=== PATIENT | male | born 1970 | race Caucasian/White ===

== ENCOUNTER 2017-02-21 21:43 | Emergency (ER) | payer OTHER ==
[2017-02-21 21:55] VITALS: O2SAT 98
[2017-02-21] MEDS ORDERED: DILAUDID 2 MG INJECTION IM ONE (22:03)
[2017-02-21] MEDS ORDERED: Phenergan 25 MG INJ IM ONE (22:03)
[2017-02-21] MEDS ORDERED: Norflex 60 MG/2 ML IM ONE (22:04)
--- NOTE | 2017-02-21 22:05 | ERPHSYRPT ---
- History of Present Illness Time Seen by Provider: 02/21/17 21:56 Source: patient Exam Limitations: clinical condition Patient Subjective Stated Complaint: Back Pain Triage Nursing Assessment: Lower back pain x2 days, hx of complaint. Pt states he has tried heat packs without improvement. Pt denies new injury. Pt denies other complaints. Pt is A&O x3, bed in low position, call light in reach. Physician History: PATIENT WITH A HISTORY OF CHRONIC LOW BACK PAIN FOR YEARS, ONSET OF INCREASED SEVERITY X 2 DAYS ASSOCIATED WITH PAIN RADIATING DOWN THE BACK OF BOTH LEGS. DENIES HISTORY OF RECENT TRAUMA, INJURY, LOSS OF BOWEL OR BLADDER FUNCTION. Timing/Duration: day(s) Method of Injury: other (DENIES INJURY) Quality: sharp Back Pain Location: lumbar spine Back Pain Radiation: lower legs Severity of Pain-Max: severe Severity of Pain-Current: severe Modifying Factors: Improves With: movement Associated Symptoms: muscle spasms Previous symptoms: same symptoms as today Allergies/Adverse Reactions: No Known Drug Allergies Allergy (Unverified 12/16/15 02:30) Hx Tetanus, Diphtheria Vaccination/Date Given: No Hx Influenza Vaccination/Date Given: No Hx Pneumococcal Vaccination/Date Given: No Immunizations Up to Date: No - Review of Systems Constitutional: No Fever, No Chills Respiratory: No Cough, No Dyspnea Cardiac: No Chest Pain, No Edema, No Syncope Abdominal/Gastrointestinal: No Abdominal Pain, No Nausea, No Vomiting, No Diarrhea Genitourinary Symptoms: No Dysuria Musculoskeletal: Back Pain Psychological: No Symptoms Endocrine: No Symptoms - Past Medical History Pertinent Past Medical History: No Cardiac History: Other Respiratory History: Asthma - Past Surgical History Past Surgical History: No - Social History Smoking Status: Never smoker Exposure to second hand smoke: No Drug Use: none Patient Lives Alone: No - Nursing Vital Signs Nursing Vital Signs: Initial Vital Signs Temperature 97.6 F 02/21/17 21:50 Pulse Rate 99 H 02/21/17 21:50 Respiratory Rate 16 02/21/17 21:50 Blood Pressure 157/97 02/21/17 21:50 O2 Sat by Pulse Oximetry 98 02/21/17 21:50 Pain Scale Pain Intensity [Back] 3 Pain Intensity 9 - Physical Exam General Appearance: moderate distress Neck Exam: normal inspection, non-tender, supple, full range of motion, No meningismus, No midline tenderness Respiratory Exam: normal breath sounds, lungs clear, No respiratory distress Cardiovascular Exam: regular rate/rhythm, normal heart sounds Back Exam: normal inspection, vertebral tenderness (L-2 TO L-5), decreased range of motion, muscle spasm Extremity Exam: normal inspection, normal range of motion Peripheral Pulses: carotid (R): 2+, carotid (L): 2+, femoral (R): 2+, femoral (L ): 2+, dorsalis-pedis (R): 2+, dorsalis-pedis (L): 2+ Neurologic Exam: alert, oriented x 3 SpO2 Interpretation: normal SpO2: 98 Oxygen Delivery: Room Air Ordered Tests: Medication Summary Discontinued Medications Generic Name Dose Route Start Last Admin Trade Name Freq PRN Reason Stop Dose Admin Hydromorphone HCl 2 mg 02/21/17 22:03 02/21/17 22:12 Dilaudid 2 Mg Injection IM 02/21/17 22:04 2 mg STAT ONE Administration Hydromorphone HCl Confirm 02/21/17 22:08 Hydromorphone 1 Mg/Ml Ampule Administered 02/21/17 22:09 Dose 2 mg .ROUTE .STK-MED ONE Orphenadrine Citrate 60 mg 02/21/17 22:04 02/21/17 22:16 Norflex 60 Mg/2 Ml IM 02/21/17 22:05 60 mg STAT ONE Administration Orphenadrine Citrate Confirm 02/21/17 22:08 Norflex 60 Mg/2 Ml Administered 02/21/17 22:09 Dose 60 mg .ROUTE .STK-MED ONE Promethazine HCl 25 mg 02/21/17 22:03 02/21/17 22:13 Phenergan 25 Mg Inj IM 02/21/17 22:04 25 mg STAT ONE Administration Promethazine HCl Confirm 02/21/17 22:07 Phenergan 25 Mg Inj Administered 02/21/17 22:08 Dose 25 mg .ROUTE .STK-MED ONE - Progress Progress: improved Progress Note: 02/21/17 23:09 ADMINISTERED DILAUDID 2MG/PHENERGAN 25MG IM, NORFLEX 60MG IM WITH MARKED RELIEF IN PAIN Counseled pt/family regarding: diagnosis, need for follow-up - Departure Time of Disposition: 23:15 Departure Disposition: Home (2320) Clinical Impression: EXACERBATION CHRONIC LOW BACK PAIN Condition: Stable Critical Care Time: No Referrals: ALLAN HARLEY MD [Primary Care Provider] - Additional Instructions: CONSULT YOUR PRIMARY CARE PROVIDER FOR EVALUATION AND TREATMENT OF YOUR BACK PAIN. NORCO 10/325 EVERY 4 HOURS NEEDED. NORFLEX 100MG EVERY 12 HOURS FOR MUSCLE SPASMS. Prescriptions: Hydrocodone/APAP 10/325 mg [Aurora 10/325 MG Tablet] 1 tab PO Q4H PRN PRN # 8 tablet MDD 4 PRN Reason: Pain Hydrocodone/APAP 10/325 mg [Aurora 10/325 MG Tablet] 1 tab PO Q4H PRN PRN # 8 tablet MDD 4 PRN Reason: Pain Orphenadrine Citrate 100 mg [Norflex 100 MG Tablet] 100 mg PO BID PRN PRN #10 tab PRN Reason: Muscle Spasms
[2017-02-21] MEDS ORDERED: Phenergan 25 MG INJ ONE (22:07)
[2017-02-21] MEDS ORDERED: Hydromorphone 1 mg/ml Ampule ONE (22:08)
[2017-02-21] MEDS ORDERED: Norflex 60 MG/2 ML ONE (22:08)
[2017-02-21 23:27] VITALS: BP 129/83; PULSE 68
== END 2017-02-21 23:33 | disposition home or self-care (01) ==
LOC: ED 21:43
DX: M54.5 Low back pain (principal); G89.29 Other chronic pain
CPT/HCPCS: 96372; 99284; J1170; J2360; J2550

== ENCOUNTER 2018-10-21 18:34 | Observation (INO) | payer OTHER ==
[2018-10-21] MEDS ORDERED: DILAUDID 2 MG INJECTION IM ONE (19:15)
[2018-10-21] MEDS ORDERED: DECADRON 10MG INJ. IM ONE (19:16)
--- NOTE | 2018-10-21 19:17 | ERPHSYRPT ---
- History of Present Illness Time Seen by Provider: 10/21/18 19:10 Source: patient Exam Limitations: no limitations Patient Subjective Stated Complaint: Pt states "I have been having problems with my back and today, I got home from work and around 5 pm my whole right leg and lower back just started to kill me." Triage Nursing Assessment: Pt presented alert and oriented X3, SKIN pwd. pt presented leaning ro the left in a wheelchair, able to ambulate with assistance , grunting and groaing. Physician History: the patient has been experiencing lower back ache for the past 2 weeks then had a flareup of his pain to his lower back with radiation down his right leg @ 17: 00 on 10/21/2018. Patient experienced similar symptoms approximately 3 years ago with an MRI performed and he had physical therapy performed. Patient denies any recent urinary retention, diarrhea he can't control, fevers, perineal numbness, saddle paresthesias, or bilateral radicular symptoms today. Timing/Duration: week(s) (2) Method of Injury: unknown Quality: radiating, sharp, stabbing Back Pain Location: lumbar spine Back Pain Radiation: lower legs Severity of Pain-Max: severe Severity of Pain-Current: severe Modifying Factors: Improves With: movement (makes it worse) Associated Symptoms: lower back pain, No fever, No chills, No sweating, No urinary incontinence, No loss of bowel control, No constipation, No nausea, No vomiting, No problems urinating, No light-headedness, No dizziness, No numbness in legs/feet, No weakness, No sensory/motor loss, No tingling in legs/feet, No muscle spasms Previous symptoms: same symptoms as today Allergies/Adverse Reactions: No Known Drug Allergies Allergy (Verified 10/21/18 19:06) Hx Tetanus, Diphtheria Vaccination/Date Given: Yes Hx Influenza Vaccination/Date Given: Yes Hx Pneumococcal Vaccination/Date Given: No Immunizations Up to Date: Yes - Review of Systems Constitutional: No Fever, No Chills Eyes: No Symptoms, No Eye Pain Ears, Nose, & Throat: No Symptoms, No Mouth Pain, No Throat Pain Respiratory: No Cough, No Dyspnea Cardiac: No Chest Pain, No Edema, No Syncope Abdominal/Gastrointestinal: No Abdominal Pain, No Nausea, No Vomiting, No Diarrhea, No Hematemesis, No Hematochezia, No Melena Genitourinary Symptoms: No Dysuria, No Frequency, No Hematuria, No Incontinence , No Urinary Retention, No Flank Pain Musculoskeletal: Back Pain, No Neck Pain, No Joint Pain Skin: No Rash, No Skin Lesions Neurological: No Dizziness, No Focal Weakness, No Paralysis, No Parasthesia, No Sensory Changes, No Tremors Psychological: No Symptoms Endocrine: No Symptoms Hematologic/Lymphatic: No Easy Bleeding, No Easy Bruising All Other Systems: Reviewed and Negative - Past Medical History Pertinent Past Medical History: No Neurological History: No Pertinent History Cardiac History: Other Respiratory History: No Pertinent History Endocrine Medical History: No Pertinent History Musculoskeletal History: Other Other Medical History: MITRAL VALVE PROLAPSE; PT. REPORTS PREVIOUS SHORT BOUTS OF LBP - Past Surgical History Past Surgical History: No - Social History Smoking Status: Never smoker Exposure to second hand smoke: No Drug Use: none Patient Lives Alone: No - Nursing Vital Signs Nursing Vital Signs: Initial Vital Signs Temperature 98.1 F 10/21/18 18:59 Pulse Rate 72 10/21/18 18:59 Respiratory Rate 18 10/21/18 18:59 Blood Pressure 146/83 10/21/18 18:59 O2 Sat by Pulse Oximetry 99 10/21/18 18:59 Pain Scale Pain Intensity 8 - Physical Exam General Appearance: no apparent distress, alert Eye Exam: PERRL/EOMI, eyes nml inspection Ears, Nose, Throat Exam: pharynx normal, moist mucous membranes Neck Exam: normal inspection, non-tender, supple, full range of motion, No meningismus, No midline tenderness Respiratory Exam: normal breath sounds, lungs clear, No respiratory distress, No diminished breath sounds, No accessory muscle use Cardiovascular Exam: regular rate/rhythm, normal heart sounds, normal peripheral pulses Gastrointestinal Exam: soft, normal bowel sounds, No tenderness, No mass, No pulsatile mass, No rebound, No organomegaly Back Exam: normal inspection, No CVA tenderness, No vertebral tenderness, No rash, No point tenderness Extremity Exam: normal inspection, normal range of motion, pelvis stable, No calf tenderness, No pedal edema Peripheral Pulses: dorsalis-pedis (R): 2+, dorsalis-pedis (L): 2+ Neurologic Exam: alert, oriented x 3, cooperative, relationship counselor II-XII nml as tested, normal mood/affect, nml station & gait, sensation nml, No motor deficits Skin Exam: normal color, warm, dry, No rash SpO2 Interpretation: normal SpO2: 99 O2 Delivery: Room Air Ordered Tests: Medication Summary Discontinued Medications Generic Name Dose Route Start Last Admin Trade Name January PRN Reason Stop Dose Admin Dexamethasone Sodium Phosphate 10 mg 10/21/18 19:16 10/21/18 19:36 Decadron 10mg Inj. IM 10/21/18 19:17 10 mg STAT ONE Administration Dexamethasone Sodium Phosphate Confirm 10/21/18 19:21 Decadron 10mg Inj. Administered 10/21/18 19:22 Dose 10 mg .ROUTE .STK-MED ONE Hydromorphone HCl 2 mg 10/21/18 19:15 10/21/18 19:33 Dilaudid 2 Mg Injection IM 10/21/18 19:16 2 mg ONCE ONE Administration Hydromorphone HCl Confirm 10/21/18 19:21 Hydromorphone 1 Mg/Ml Ampule Administered 10/21/18 19:22 Dose 2 mg .ROUTE .STK-MED ONE Morphine Sulfate 4 mg 10/21/18 20:46 10/21/18 21:13 Morphine Sulfate 4 Mg Inj IM 10/21/18 20:47 4 mg STAT ONE Administration Morphine Sulfate Confirm 10/21/18 21:12 Morphine Sulfate 4 Mg Inj Administered 10/21/18 21:13 Dose 4 mg .ROUTE .STK-MED ONE - Progress Progress: improved, pain not gone completely, re-examined Progress Note: 10/21/18 20:44 No neurologic deficits on repeat examination, which is a change from initial examination. Patient still has a fair amount pain, but the pain is improving. Patient will be given morphine IM to help with pain control this evening. 10/21/18 22:05 patient's pain has continued to improve the patient has no neurologic deficits or repeat examination. The patient will be discharged home. Counseled pt/family regarding: diagnosis, need for follow-up - Departure Departure Disposition: Home Clinical Impression: Elevated blood pressure reading without diagnosis of hypertension Acute low back pain Qualifiers: Back pain laterality: right Sciatica presence: with sciatica Sciatica laterality: sciatica of right side Qualified Code(s): M54.41 - Lumbago with sciatica, right side Condition: Good Critical Care Time: No Referrals: CRICKET,ALLAN, MD [Primary Care Provider] - 10/22/18 Instructions: Low Back Pain (DC), Sciatica (DC) Additional Instructions: return immediately back to the emergency room if any new focal weakness, bilateral symptoms down both legs, loss of bowel or bladder control, numbness on the area you sit upon, fever, or any other concerning signs or symptoms that was not present in the emergency department for immediate reevaluation. Forms: Work/School Release Form Prescriptions: Methylprednisolone Packet [Medrol Dosepack] 4 mg PO UD #1 packet
[2018-10-21] MEDS ORDERED: DECADRON 10MG INJ. ONE (19:21)
[2018-10-21] MEDS ORDERED: Hydromorphone 1 mg/ml Ampule ONE (19:21)
[2018-10-21] MEDS ORDERED: MORPHINE SULFATE 4 MG INJ IM ONE (20:46)
[2018-10-21] MEDS ORDERED: MORPHINE SULFATE 4 MG INJ ONE (21:12)
[2018-10-21] MEDS ORDERED: Sodium Chloride 0.9% 1000 ML 1,000 ML ONE (23:36)
[2018-10-21] MEDS ORDERED: MORPHINE SULFATE 2 MG INJ IV PRN (23:48)
[2018-10-21] MEDS ORDERED: Sodium Chloride 0.9% 1000 ML 1,000 ML IV STA (23:48)
[2018-10-22 00:44] LABS: BASOPHIL % 0.2 % (0.0-0.4); Basophil (Absolute #) 0.02 (0-0.4); Eosinophil % 0.3 % (0.00-5.0); Eosinophil (Absolute #) 0.03 (0-0.5); Granulocyte Absolute (ANC) 9.63 (1.4-6.9); Granulocytes % 93.9 % (36.0-66.0); Hematocrit 46.3 % (42-50); Hemoglobin 16.1 gm/dl (12.5-18.0); Lymphocyte (Absolute #) 0.53 (1.0-4.6); Lymphocytes % 5.2 % (24.0-44.0); Mean Cell Volume 84.5 fl (78-100); Mean Corpuscular Hemoglobin 29.4 pg (26-32); Mean Corpuscular Hgb Concent. 34.8 g/dl (32-36); Mean Platelet Volume 9.7 fl (6-9.5); Monocyte (Absolute #) 0.04 (0.0-1.3); Monocytes % 0.4 % (0.0-12.0); Platelet Count 233 K/mm3 (150-450); Red Blood Count 5.48 M/mm3 (4.1-5.6); Red Cell Distribution Width 12.7 % (11.5-14.0); White Blood Count 10.3 K/mm3 (4.0-10.5)
[2018-10-22 01:01] LABS: BLOOD UREA NITROGEN 11 mg/dL (9-20); CHLORIDE 106 mmol/L (98-107); CK-Creatinine Phosphokinase 74 U/L (55-170); Calcium 9.2 mg/dL (8.4-10.2); Carbon Dioxide 22 mmol/L (22-30); Creatinine 1 0.73 mg/dL (0.66-1.25); Glucose 203 mg/dL (74-106); Potassium 4.2 mmol/L (3.5-5.1); SODIUM 138 mmol/L (137-145)
[2018-10-22 02:51] LABS: Slide Review 1 YES
[2018-10-22] MEDS: MORPHINE SULFATE 4 MG INJ IV PRN ×3 (07:31→20:58)
[2018-10-22] MEDS ORDERED: MOTRIN 200 MG PO PRN (08:58)
[2018-10-22] MEDS ORDERED: Sodium Chloride 0.9% 10 ML FLUSH Syringe IV PRN (09:00)
--- NOTE | 2018-10-22 11:08 | PCM.HP ---
History of Present Illness - Chief Complaint Chief Complaint: severe back pain for 1 day History of Present Illness: is a 48 year old male. patient has been experiencing lower back ache for the past 2 weeks then had a flareup of his pain to his lower back with radiation down his right leg @ 17:00 on 10/21/2018. Patient experienced similar symptoms approximately 3 years ago with an MRI performed and he had physical therapy performed. Patient denies any recent urinary retention, diarrhea he can 't control, fevers, perineal numbness, saddle paresthesias, or bilateral radicular symptoms today. Timing/Duration: week(s) (2) Method of Injury: unknown Quality: radiating, sharp, stabbing Back Pain Location: lumbar spine Back Pain Radiation: lower legs Severity of Pain-Max: severe Severity of Pain-Current: severe Modifying Factors: Improves With: movement (makes it worse) Associated Symptoms: lower back pain, No fever, No chills, No sweating, No urinary incontinence, No loss of bowel control, No constipation, No nausea, No vomiting, No problems urinating, No light-headedness, No dizziness, No numbness in legs/feet, No weakness, No sensory/motor loss, No tingling in legs/feet, No muscle spasm - Review of Systems Constitutional: No Fever, No Chills Eyes: No Symptoms Ears, Nose, & Throat: No Symptoms Respiratory: No Cough, No Short Of Breath Cardiac: No Chest Pain, No Edema, No Syncope Abdominal/Gastrointestinal: No Abdominal Pain, No Nausea, No Vomiting, No Diarrhea Genitourinary Symptoms: No Dysuria Musculoskeletal: Back Pain, No Neck Pain Skin: No Rash Neurological: No Dizziness, No Focal Weakness, No Sensory Changes Psychological: No Symptoms Endocrine: No Symptoms Hematologic/Lymphatic: No Symptoms Immunological/Allergic: No Symptoms Medications & Allergies Home Medications: Home Medication List Ibuprofen 200 mg [Motrin 200 mg] 200 mg PO Q6H PRN PRN 10/22/18 [History Confirmed 10/22/18] Allergies/Adverse Reactions: Allergies Allergy/AdvReac Type Severity Reaction Status Date / Time No Known Drug Allergies Allergy Verified 10/21/18 19:06 - Past Medical History Past Medical History: No Neurological History: No Pertinent History Cardiac History: Other Respiratory History: Asthma Endocrine Medical History: No Pertinent History Musculoskelatal History: Other Comment: MITRAL VALVE PROLAPSE - Past Surgical History Past Surgical History: No - Social History Smoking Status: Never smoker Exposure to second hand smoke: No Alcohol: Occasionally Drug Use: none - Physical Exam Vital Signs: Vital Signs - 24 hr Temp Pulse Resp BP Pulse Ox 10/22/18 07:28 98.1 F 96 H 16 133/82 96 10/22/18 04:20 97.7 F 106 H 14 141/70 96 10/22/18 00:39 98.5 F 73 20 162/87 97 10/21/18 23:48 97 10/21/18 22:30 71 17 125/80 95 10/21/18 22:11 99 10/21/18 21:40 68 17 134/88 96 10/21/18 20:50 70 16 125/84 97 10/21/18 20:00 65 18 131/77 97 10/21/18 18:59 98.1 F 72 18 146/83 99 General Appearance: no apparent distress, alert Neurologic Exam: alert, oriented x 3, cooperative, normal mood/affect, nml cerebellar function, nml station & gait, sensation nml, No motor deficits Eye Exam: PERRL/EOMI, eyes nml inspection Ears, Nose, Throat Exam: normal ENT inspection, TMs normal, pharynx normal, moist mucous membranes Neck Exam: normal inspection, non-tender, supple, full range of motion Respiratory Exam: normal breath sounds, lungs clear, No respiratory distress Cardiovascular Exam: regular rate/rhythm, normal heart sounds, normal peripheral pulses Gastrointestinal/Abdomen Exam: soft, normal bowel sounds, No tenderness, No mass Back Exam: normal inspection, normal range of motion, No CVA tenderness, No vertebral tenderness Extremity Exam: normal inspection, normal range of motion, pelvis stable Skin Exam: normal color, warm, dry, No rash Lymphatic Exam: No adenopathy Results - Labs Lab/Micro Results: Lab Results-Last 24 Hours 10/21/18 10/21/18 Range/Units 00:30 00:30 WBC 10.3 (4.0-10.5) K/mm3 RBC 5.48 (4.1-5.6) M/mm3 Hgb 16.1 (12.5-18.0) gm/dl Hct 46.3 (42-50) % MCV 84.5 (78-100) fl MCH 29.4 (26-32) pg MCHC 34.8 (32-36) g/dl RDW 12.7 (11.5-14.0) % Plt Count 233 (150-450) K/mm3 MPV 9.7 H (6-9.5) fl Gran % 93.9 H (36.0-66.0) % Eos # (Auto) 0.03 (0-0.5) Absolute Lymphs (auto) 0.53 L (1.0-4.6) Absolute Monos (auto) 0.04 (0.0-1.3) Lymphocytes % 5.2 L (24.0-44.0) % Monocytes % 0.4 (0.0-12.0) % Eosinophils % 0.3 (0.00-5.0) % Basophils % 0.2 (0.0-0.4) % Absolute Granulocytes 9.63 H (1.4-6.9) Basophils # 0.02 (0-0.4) Sodium 138 (137-145) mmol/L Potassium 4.2 (3.5-5.1) mmol/L Chloride 106 (98-107) mmol/L Carbon Dioxide 22 (22-30) mmol/L Anion Gap 15.0 (5-15) MEQ/L BUN 11 (9-20) mg/dL Creatinine 0.73 (0.66-1.25) mg/dL Estimated GFR > 60.0 ML/MIN Glucose 203 H (74-106) mg/dL Calcium 9.2 (8.4-10.2) mg/dL Creatine Kinase 74 (55-170) U/L Slides for Path Review YES Assessment/Plan (1) Acute low back pain Current Visit: Yes Status: Acute Qualifiers: Back pain laterality: right Sciatica presence: with sciatica Sciatica laterality: sciatica of right side Qualified Code(s): M54.41 - Lumbago with sciatica, right side Assessment & Plan: Last Vital Signs Temp 98.1 F 10/22/18 07:28 Pulse 96 H 10/22/18 07:28 Resp 16 10/22/18 07:28 BP 133/82 10/22/18 07:28 Pulse Ox 96 10/22/18 07:28 Allergies No Known Drug Allergies Allergy (Verified 10/21/18 19:06) Active Medications Ibuprofen (Motrin 200 Mg) 200 mg PO Q6H PRN PRN PRN Reason: PAIN Stop: 11/21/18 08:57 Morphine Sulfate (Morphine Sulfate 4 Mg Inj) 4 mg IV Q2H PRN PRN Stop: 10/27/18 06:59 Last Admin: 10/22/18 07:31 Dose: 4 mg Sodium Chloride (Sodium Chloride 0.9% 10 Ml Flush Syringe) 10 ml IV Q8HT JULIA Stop: 11/21/18 13:59 Sodium Chloride (Sodium Chloride 0.9% 10 Ml Flush Syringe) 10 ml IV PRN PRN Stop: 11/21/18 08:59 Intake & Output 10/21/18 10/22/18 11:59 11:59 Intake Total 2030 Balance 2030 Weight 73.8 kg Orders 10/22/18 08:30 PT Eval & Treat (MD Order) ROUTINE 10/22/18 08:58 Ibuprofen 200 mg [Motrin 200 mg] 200 mg PO Q6H PRN PRN Lab Tests 10/21/18 10/21/18 00:30 00:30 WBC 10.3 RBC 5.48 Hgb 16.1 Hct 46.3 MCV 84.5 MCH 29.4 MCHC 34.8 RDW 12.7 Plt Count 233 MPV 9.7 H Gran % 93.9 H Eos # (Auto) 0.03 Absolute Lymphs (auto) 0.53 L Absolute Monos (auto) 0.04 Lymphocytes % 5.2 L Monocytes % 0.4 Eosinophils % 0.3 Basophils % 0.2 Absolute Granulocytes 9.63 H Basophils # 0.02 Sodium 138 Potassium 4.2 Chloride 106 Carbon Dioxide 22 Anion Gap 15.0 BUN 11 Creatinine 0.73 Estimated GFR > 60.0 Glucose 203 H Calcium 9.2 Creatine Kinase 74 Slides for Path Review YES Code(s): M54.5 - LOW BACK PAIN (2) Intractable back pain Current Visit: Yes Status: Acute Code(s): M54.9 - DORSALGIA, UNSPECIFIED
[2018-10-22] MEDS ORDERED: TORAdol 30 mg Injection IM SCH (11:45)
[2018-10-22] MEDS: Sodium Chloride 0.9% 10 ML FLUSH Syringe IV SCH ×2 (14:16→20:17)
--- NOTE | 2018-10-22 14:58 | XRAY ---
Indication: Intractable low back pain with right leg radiculopathy. Sagittal and axial MRI lumbar spine performed without contrast using T1 and T2 weighted sequences. Comparison: None No prior lumbar exams for counting purposes. 5 lumbar segments will be assumed. Sagittal MRI images demonstrates normal lumbar alignment. L4-S1 degenerative disc desiccation signal with minimal disc space narrowing. Minimal L5-S1 opposing endplate degenerative discogenic signal changes, Modic type II. Tiny L4 and L5 vertebral hemangiomas. No acute fracture, sublocation, or abnormal bone marrow signal. Conus medullaris terminates at the thoracolumbar junction. Incidental 1.5 cm right S3 perineural cyst. Sagittal images through the T12-L3 levels are unremarkable. Axial images at the L3-L4 level demonstrates very minimal annular disc bulge minimally effacing the thecal sac. No disc herniation, spinal canal, or foraminal stenosis. Facets are symmetric. At the L4-L5 level, there is large right paracentral disc herniation. Disc material extends posteriorly occupying the right epidural space and also extends superiorly slightly effacing the thecal sac. Herniated disc measures 1.2 x 1.1 x 3.1 cm in greatest AP, transverse, and CC projections. Facets are symmetric. At the L5-S1 level, there is minimal annular disc bulge minimally effacing the thecal sac and producing mild bilateral foraminal narrowing. No disc herniation or spinal canal stenosis. Facets are symmetric. Impression: 1. Large L4-L5 right paracentral disc herniation as detailed. 2. Minimal L3-L4 and L5-S1 degenerative disc disease. 3. Incidental 1.5 cm right S3 perineural cyst and tiny L4/L5 vertebral hemangiomas.
[2018-10-22] MEDS: TORAdol 30 mg Injection IV SCH (19:47)
[2018-10-23] MEDS: TORAdol 30 mg Injection IV SCH ×3 (03:43→20:16)
[2018-10-23] MEDS: Sodium Chloride 0.9% 10 ML FLUSH Syringe IV SCH (03:46)
[2018-10-23] MEDS: MORPHINE SULFATE 4 MG INJ IV PRN ×5 (08:43→21:41)
--- NOTE | 2018-10-23 12:38 | PCM.NOTE ---
Date and Time: 10/23/18 1236 Subjective Assessment: unable to walk on right side at all, unable to bear weight - Review of Systems Constitutional: No Fever, No Chills Eyes: No Symptoms Ears, Nose, & Throat: No Symptoms Respiratory: No Cough, No Short Of Breath Cardiac: No Chest Pain, No Edema, No Syncope Abdominal/Gastrointestinal: No Abdominal Pain, No Nausea, No Vomiting, No Diarrhea Genitourinary Symptoms: No Dysuria Musculoskeletal: No Back Pain, No Neck Pain Skin: No Rash Neurological: No Dizziness, No Focal Weakness, No Sensory Changes Psychological: No Symptoms Endocrine: No Symptoms Hematologic/Lymphatic: No Symptoms Immunological/Allergic: No Symptoms Objective Exam General Appearance: no apparent distress, alert Neurologic Exam: alert, oriented x 3, cooperative, motor deficits, sensory deficit Skin Exam: normal color, warm, dry Eye Exam: PERRL, EOMI, eyes nml inspection Ears, Nose, Throat Exam: normal ENT inspection, pharynx normal, moist mucous membranes Neck Exam: normal inspection, non-tender, supple, full range of motion Respiratory Exam: normal breath sounds, lungs clear, No respiratory distress Cardiovascular Exam: regular rate/rhythm, normal heart sounds Gastrointestinal/Abdomen Exam: soft, No tenderness, No mass Extremity Exam: normal inspection, normal range of motion Back Exam: normal inspection, normal range of motion, No CVA tenderness, No vertebral tenderness Male Genitalia Exam: deferred Rectal Exam: deferred OBJECTIVE DATA Vital Signs: Vital Signs - 24 hr Temp Pulse Resp BP Pulse Ox 10/23/18 07:40 97.9 F 78 16 113/58 98 10/23/18 04:02 98.1 F 68 16 122/65 97 10/22/18 23:48 97 10/22/18 23:44 98.2 F 68 20 126/58 97 10/22/18 19:58 97.8 F 82 18 127/66 97 10/22/18 16:00 98 F 82 18 130/60 96 Pain Assessment - Last Documented Pain Intensity 7 Pain Scale Used 0-10 Pain Scale Intake and Output: Intake & Output 10/21/18 10/22/18 10/23/18 10/24/18 11:59 11:59 11:59 11:59 Intake Total 2030 1500 Balance 2030 1500 Weight 73.8 kg Radiology Exams: Radiology Procedures Category Date Time Status MRI L-SPINE WITHOUT CONTRAST [MRI] Routine Exams 10/22/18 13:03 Completed Assessment/Plan (1) Acute low back pain Current Visit: Yes Status: Acute Qualifiers: Back pain laterality: right Sciatica presence: with sciatica Sciatica laterality: sciatica of right side Qualified Code(s): M54.41 - Lumbago with sciatica, right side Code(s): M54.5 - LOW BACK PAIN (2) Intractable back pain Current Visit: Yes Status: Acute Code(s): M54.9 - DORSALGIA, UNSPECIFIED
[2018-10-24] MEDS: TORAdol 30 mg Injection IV SCH ×3 (04:07→20:32)
[2018-10-24] MEDS: MORPHINE SULFATE 4 MG INJ IV PRN ×4 (07:46→22:01)
--- NOTE | 2018-10-24 09:17 | PCM.NOTE ---
Date and Time: 10/24/18910 Subjective Assessment: Patient seen and examined this am. Patient reports that he is still having significant back pain and requiring morphine every 2-4 hours. He reports that he has had numbness and pain that radiate down his right leg. He denies any issues with voiding and stooling. He reports that he does not feel he needs a stool softner at this time. He states he got up with PT x3 yesterday and tolerated that well. Patient was concerned about appt with Dr Galindo on . No other reported concerns at this time. - Review of Systems Constitutional: Other (Patient reports back and R lower leg pain. ) Eyes: No Double Vision Respiratory: No Short Of Breath Cardiac: No Chest Pain, No Edema Abdominal/Gastrointestinal: No Abdominal Pain, No Nausea, No Vomiting, No Diarrhea, No Constipation Genitourinary Symptoms: No Urinary Retention Musculoskeletal: Back Pain (Tender with palpation L3-L4 area. Decreased sensation R lower extremity 2/5 strength R lower extremity) Skin: No Rash Neurological: Gait Changes, Parasthesia, Sensory Changes, No Headache Hematologic/Lymphatic: No Anemia, No Blood Clots, No Easy Bleeding Objective Exam General Appearance: mild distress Neurologic Exam: alert, oriented x 3, cooperative, normal mood/affect, motor deficits (2/5 strength R lower extremity. Decreased sensation on R lower extremity) Skin Exam: warm, dry Eye Exam: eyes nml inspection Respiratory Exam: normal breath sounds, lungs clear Cardiovascular Exam: regular rate/rhythm Gastrointestinal/Abdomen Exam: soft, normal bowel sounds, No tenderness Extremity Exam: parasthesia Back Exam: point tenderness Male Genitalia Exam: deferred Rectal Exam: deferred OBJECTIVE DATA Vital Signs: Vital Signs - 24 hr Temp Pulse Resp BP Pulse Ox 10/24/18 08:00 97.5 F 73 20 122/68 97 10/24/18 04:00 97.5 F 55 L 18 111/61 10/24/18 00:00 98.2 F 60 18 124/65 96 10/23/18 20:00 81 F 66 19 151/83 96 10/23/18 16:00 98.4 F 66 20 132/70 95 10/23/18 12:00 99 F 60 16 150/84 94 L Pain Assessment - Last Documented Pain Intensity 8 Pain Scale Used 0-10 Pain Scale Intake and Output: Intake & Output 10/21/18 10/22/18 10/23/18 10/24/18 11:59 11:59 11:59 11:59 Intake Total 2030 1500 1200 Balance 2030 1500 1200 Weight 73.8 kg Radiology Exams: Radiology Procedures Category Date Time Status MRI L-SPINE WITHOUT CONTRAST [MRI] Routine Exams 10/22/18 13:03 Completed Multi-Disciplinary Progress Notes: Multi-Disciplinary Progress Notes 10/23/18 16:27 Physical Therapy Note by Pamela Tobin PT. AMBUALTED 50' W/ ROLLER WALKER AND CGA. WAS ABLE TO WB R LE W/ GAIT BUT PICKED FOOT UP TO BE NWB WHEN CHANGING DIRECTION TO AVOID P. ATTEMPTED STANDING SHIFTS IN DOORWAY TO R TO DECREASE RADICULAR PN WHICH PT PERFORMED BUT DID NOT RELIEVE SX. PAMELA TOBIN PT Initialized on 10/23/18 16:27 - END OF NOTE 10/23/18 15:47 Physical Therapy Note by Pamela Tobin PT. STILL C/O R LBP AND PN INTO R LE PER L4-5 PATTERN. PT. REPORTS PN AT 7-9/ 10 W/ MINIMAL RELIEF W/ MEDS OR RX. PN STILL INCREASES W/ WB AND HAS TO USE ROLLER WALKER FOR BALANCE EVEN TO AMBULATE TO BATHROOM. CP, MENS X 30 MINS TO R L-SPINE IN L SIDELYING TO DECREASE PN/INFLAMMATION. DID TOLERATE PRONE LYING FOR ~ 3-4 MINS W/ MILD RELIEF; RECEIVED L PELVIS SHIFTS AND L-SPIN EPAS TO DECREASE NERVE ROOT PRESSURE W/ MINIMAL RELIEF. PT. IS TO HAVE NEUROSURG. CONSULT W/ DR. GALINDO ON 10/27/18 AND PLAN IS FOR HIM TO STAY FOR PN MG'T. WILL CONT. P.T. TOLERATED. PAMELA TOBIN PT Initialized on 10/23/18 15:47 - END OF NOTE 10/23/18 12:51 Case Management Note by Jeana Zendejas CALL TO DR. GALINDO OFFICE - APPOINTMENT ON AT 2:30, PT WILL NEED TO ARRIVE AT 2:[address] HARLEY AWARE, DISCUSSED WITH PT, AND PT WILL LIKELY STAY IN HOSPITAL UNTIL THAT APPOINTMENT FOR PAIN CONTROL. Initialized on 10/23/18 12:51 - END OF NOTE 10/23/18 12:30 (created 10/23/18 12:49) Case Management Note by Jeana Zendejas DR. ROUNDED AND EVALUATED, PT IS UNABLE TO BEAR WEIGHT ON RIGHT LEG, C/ O SEVERE PAIN. DR. HARLEY DISCUSSED MRI FINDINGS AND RELATED PAIN. WILL CONTACT DR. KIANNA GALINDO, NEUROSURGEON FOR APPOINTMENT. PT IS AGREEABLE FOR THIS PLAN. Initialized on 10/23/18 12:49 - END OF NOTE Assessment/Plan (1) Intractable back pain Current Visit: Yes Status: Acute Assessment & Plan: Patient reports improvement of back pain from initial admission however he reports that he is requiring morphine every 2-4 hours to control his back pain. Patient reports he was able to get up with PT x3 yesterday and tolerated it well. He reports decreased sensation and has decreased strength in R lower extremity. Plan is to continue pain management. Patient has appt to follow up with Dr Galindo neurosurgeon on to discuss tx options. Code(s): M54.9 - DORSALGIA, UNSPECIFIED (2) Acute low back pain Current Visit: Yes Status: Acute Qualifiers: Back pain laterality: right Sciatica presence: with sciatica Sciatica laterality: sciatica of right side Qualified Code(s): M54.41 - Lumbago with sciatica, right side Assessment & Plan: Same plan as in intractable back pain Code(s): M54.5 - LOW BACK PAIN (3) Sciatica Current Visit: Yes Status: Acute Assessment & Plan: Patient will likely need surgery for tx of sciatica. Will have patient follow up with Dr Galindo neurosurgeon. Code(s): M54.30 - SCIATICA, UNSPECIFIED SIDE
[2018-10-24] MEDS ORDERED: MORPHINE SULFATE 2 MG INJ IV ONE (11:07)
[2018-10-24] MEDS: Sodium Chloride 0.9% 10 ML FLUSH Syringe IV SCH ×3 (16:51→22:01)
[2018-10-25] MEDS: MORPHINE SULFATE 4 MG INJ IV PRN ×7 (03:14→22:30)
[2018-10-25] MEDS: TORAdol 30 mg Injection IV SCH ×3 (04:51→20:21)
--- NOTE | 2018-10-25 11:11 | PCM.NOTE ---
Date and Time: 10/25/18 1106 Subjective Assessment: 48 yr old male seen and examined this am. Patient was sleeping upon entering the room. Patient reports his pain is 8/10 right now. Patient reports that his pain was worse yesterday when he was up out of bed and felt like he was going to pass out. Patient is still requiring pain meds every 2-4 hours. Patient reports that he is eating well. He denies any issues with voiding. He has not had a BM. Discussed with patient that the morphine can be constipating but he denies any sensation of needing to have BM. - Review of Systems Constitutional: Weakness Eyes: No Vision Changes, No Double Vision Respiratory: No Cough, No Short Of Breath Cardiac: No Chest Pain, No Edema Abdominal/Gastrointestinal: No Abdominal Pain, No Nausea, No Vomiting, No Diarrhea, No Constipation Genitourinary Symptoms: No No Symptoms Musculoskeletal: Back Pain, Other (Right leg numbness) Skin: No Symptoms Neurological: Parasthesia, No Headache Objective Exam General Appearance: other (Patient was asleep upon entering the room and NAD during exam) Neurologic Exam: alert, oriented x 3, cooperative Skin Exam: normal color, warm, dry Eye Exam: eyes nml inspection Neck Exam: normal inspection Respiratory Exam: normal breath sounds, lungs clear Cardiovascular Exam: regular rate/rhythm, normal heart sounds Gastrointestinal/Abdomen Exam: soft, normal bowel sounds, No tenderness, No distention Extremity Exam: other (Patient had normal ROM with lower extremities however when performing straight leg raises against resistance patient demonstrated 2/5 on R side. Patient was able to bend and move R leg without difficulty. Decreased sensation R lower extremity.) Back Exam: point tenderness (Noted on exam yesterday) OBJECTIVE DATA Vital Signs: Vital Signs - 24 hr Temp Pulse Resp BP Pulse Ox 10/25/18 07:54 98.5 F 59 L 18 120/73 98 10/25/18 04:00 97.5 F 64 18 131/75 97 10/25/18 00:00 97.6 F 61 18 135/73 97 10/24/18 20:00 97.4 F 70 20 134/66 96 10/24/18 16:00 97.7 F 66 20 117/61 99 10/24/18 12:00 97.5 F 53 L 24 126/77 99 Pain Assessment - Last Documented Pain Intensity 8 Pain Scale Used 0-10 Pain Scale Intake and Output: Intake & Output 10/22/18 10/23/18 10/24/18 10/25/18 11:59 11:59 11:59 11:59 Intake Total 2030 1500 1680 1780 Output Total 275 550 Balance 2030 1500 1405 1230 Weight 73.8 kg Assessment/Plan (1) Intractable back pain Current Visit: Yes Status: Acute Assessment & Plan: Patient reports improvement of back pain from initial admission however he reports that he is requiring morphine every 2-4 hours to control his back pain. Patient reports 8/10 pain. He reports decreased sensation and has decreased strength in R lower extremity. Plan is to continue pain management. Patient has appt to follow up with Dr Galindo neurosurgeon on [facility] to discuss tx options. Code(s): M54.9 - DORSALGIA, UNSPECIFIED (2) Acute low back pain Current Visit: Yes Status: Acute Qualifiers: Back pain laterality: right Sciatica presence: with sciatica Sciatica laterality: sciatica of right side Qualified Code(s): M54.41 - Lumbago with sciatica, right side Code(s): M54.5 - LOW BACK PAIN (3) Sciatica Current Visit: Yes Status: Acute Code(s): M54.30 - SCIATICA, UNSPECIFIED SIDE
[2018-10-25] MEDS: Sodium Chloride 0.9% 10 ML FLUSH Syringe IV SCH ×3 (19:18→20:28)
[2018-10-26] MEDS: MORPHINE SULFATE 4 MG INJ IV PRN ×2 (00:50→07:11)
[2018-10-26] MEDS: TORAdol 30 mg Injection IV SCH (03:15)
[2018-10-26] MEDS: Sodium Chloride 0.9% 10 ML FLUSH Syringe IV SCH (05:25)
[2018-10-26 07:31] VITALS: O2SAT 97
[2018-10-26] MEDS ORDERED: Naprosyn 500 MG PO SCH (10:00)
[2018-10-26 11:30] VITALS: BP 98/53; PULSE 61
--- NOTE | 2018-10-27 12:30 | PCM.DS ---
Discharge Summary Date of Admission: 10/21/18 23:22 Admitting Physician: ALLAN HARLEY Primary Care Provider: ALLAN HARLEY Allergies Allergies No Known Drug Allergies Allergy (Verified 10/21/18 19:06) Hospital Summary - Hospital Course Hospital Course: Chief Complaint Diagnosis severe back pain for 1 day Allergies Allergy/AdvReac Type Severity Reaction Status Date / Time No Known Drug Allergies Allergy Verified 10/21/18 19:06 Home Medications Medication Instructions Recorded Confirmed Last Taken Type Ibuprofen 200 mg [Motrin 200 200 mg PO Q6H PRN PRN 10/22/18 10/22/18 Unknown History mg] Naproxen 500 mg [Naprosyn 500 500 mg PO BIDPRN PRN #10 tablet 10/26/18 Unknown Rx MG] Current Medications Discontinued Medications Generic Name Dose Route Start Last Admin Trade Name Freq PRN Reason Stop Dose Admin Dexamethasone Sodium Phosphate 10 mg 10/21/18 19:16 10/21/18 19:36 Decadron 10mg Inj. IM 10/21/18 19:17 10 mg STAT ONE Administration Dexamethasone Sodium Phosphate Confirm 10/21/18 19:21 Decadron 10mg Inj. Administered 10/21/18 19:22 Dose 10 mg .ROUTE .STK-MED ONE Hydromorphone HCl 2 mg 10/21/18 19:15 10/21/18 19:33 Dilaudid 2 Mg Injection IM 10/21/18 19:16 2 mg ONCE ONE Administration Hydromorphone HCl Confirm 10/21/18 19:21 Hydromorphone 1 Mg/Ml Ampule Administered 10/21/18 19:22 Dose 2 mg .ROUTE .STK-MED ONE Sodium Chloride Confirm 10/21/18 23:36 Sodium Chloride 0.9% 1000 Ml Administered 10/21/18 23:37 Dose 1,000 mls @ ud .ROUTE .STK-MED ONE Sodium Chloride 1,000 mls @ 999 mls/hr 10/21/18 23:48 10/22/18 00:30 Sodium Chloride 0.9% 1000 Ml IV 10/22/18 00:48 999 mls/hr .Q1H1M STA Administration Ibuprofen 200 mg 10/22/18 08:58 Motrin 200 Mg PO 11/21/18 08:57 Q6H PRN PRN PAIN Ketorolac Tromethamine 60 mg 10/22/18 11:45 10/22/18 11:57 Toradol 30 Mg Injection IM 10/27/18 11:44 60 mg Q8H JULIA Administration Ketorolac Tromethamine 30 mg 10/22/18 19:45 10/26/18 03:15 Toradol 30 Mg Injection IV 10/27/18 19:44 Not Given Q8H JULIA Morphine Sulfate 4 mg 10/21/18 20:46 10/21/18 21:13 Morphine Sulfate 4 Mg Inj IM 10/21/18 20:47 4 mg STAT ONE Administration Morphine Sulfate Confirm 10/21/18 21:12 Morphine Sulfate 4 Mg Inj Administered 10/21/18 21:13 Dose 4 mg .ROUTE .STK-MED ONE Morphine Sulfate 4 mg 10/21/18 23:48 10/22/18 00:30 Morphine Sulfate 2 Mg Inj IV 10/26/18 23:47 4 mg Q2H PRN PRN Administration PAIN Morphine Sulfate 4 mg 10/22/18 07:00 10/26/18 07:11 Morphine Sulfate 4 Mg Inj IV 10/27/18 06:59 4 mg Q2H PRN PRN Administration Morphine Sulfate 1 mg 10/24/18 11:07 10/24/18 11:15 Morphine Sulfate 2 Mg Inj IV 10/24/18 11:08 1 mg STAT ONE Administration Naproxen 500 mg 10/26/18 10:00 10/26/18 09:41 Naprosyn 500 Mg PO 11/25/18 09:59 500 mg BID JULIA Administration Sodium Chloride 10 ml 10/22/18 14:00 10/26/18 05:25 Sodium Chloride 0.9% 10 Ml Flush Syringe IV 11/21/18 13:59 10 ml Q8HT JULIA Administration Sodium Chloride 10 ml 10/22/18 09:00 10/22/18 20:59 Sodium Chloride 0.9% 10 Ml Flush Syringe IV 11/21/18 08:59 10 ml PRN PRN Administration Intake & Output (Last 24 hours) 10/25/18 10/26/18 10/27/18 10/28/18 11:59 11:59 11:59 11:59 Intake Total 1780 2120 240 Output Total 550 Balance 1230 2120 240 Patient Care Notes (Last 24 hours) 10/26/18 15:48 Physical Therapy Note by Pamela Tobin PT. REPORTS R LBP AND R LE PN/PARASTHESIAS AT ~08/26. PLAN IS TO D/C HOME W/ NAPROXEN. PT. REPORTS INCREASED PN W/ WB BUT IS ABLE TO AMBULATE 100' W/ ROLLER WALKER AND SBA. PT. REPORTS HE CAN BORROW A WALKER WHEN HE GETS HOME, BUT ADVISED HIM TO LET US KNOW I WOULD PROVIDE P.T. DOCUMENTATION TO ASSIST W/ INSURANCE COVERAGE. PT. PERFORMED PRONE LYING AND PRONE PROP FOR ~ 3 MINS W/ NO INCREASE IN PN. PT. REPORTED INCREASED R LE PN W/ ATTTEMPT TO SHIFT PELVIS TO LEFT IN PRONE. PT. NOT ABLE TO TOLERATE HAMSTRING/SCIATIC STRETCH IN [place]. PT. REPORTED SOME DECREASED PN W/ R LEG DISTRACTION IN [place]. CP APPLIED TO DECREASE PN/INFLAMMATION. PT. TO SEE DR. GALINDO TOMORROW 10/27 FOR NEUROSURG. CONSULT. NO OP P.T. ORDERED AT THIS TIME. PAMELA TOBIN PT Initialized on 10/26/18 15:48 - END OF NOTE 10/26/18 13:52 Nursing Note by Vandana Duval patient taken home by his father, given discharge instructions on how to manage pain at home Initialized on 10/26/18 13:52 - END OF NOTE - Vitals & Intake/Output Vital Signs: Vital Signs Temperature 98.6 F 10/26/18 11:29 Pulse Rate 61 10/26/18 11:29 Respiratory Rate 18 10/26/18 11:29 Blood Pressure 98/53 10/26/18 11:29 O2 Sat by Pulse Oximetry 97 10/26/18 11:29 Intake & Output: Intake & Output 10/25/18 10/26/18 10/27/18 10/28/18 11:59 11:59 11:59 11:59 Intake Total 1780 2120 240 Output Total 550 Balance 1230 2120 240 - Lab Result Diagrams: 10/21/18 00:30 10/21/18 00:30 - Procedures and Test Procedures and Tests throughout Hospitalization: Therapy Orders & Screens 10/22/18 08:30 PT Eval & Treat ( Order) ROUTINE Reason for Eval:: UNABLE TO WALK PER INCREASED PAIN R/T INTRACTABLE BACK PAIN /SCIATICA Diagnosis: Intractable Low Back Pain Discharge Exam General Appearance: no apparent distress, alert Neurologic Exam: alert, oriented x 3, cooperative, normal mood/affect, nml cerebellar function, sensation nml, No motor deficits Eye Exam: PERRL, EOMI, eyes nml inspection Ears, Nose, Throat Exam: normal ENT inspection, pharynx normal, moist mucous membranes Neck Exam: normal inspection, non-tender, supple, full range of motion Respiratory Exam: normal breath sounds, lungs clear, No respiratory distress Cardiovascular Exam: regular rate/rhythm, normal heart sounds Gastrointestinal/Abdomen Exam: soft, No tenderness, No mass Male Genitalia Exam: deferred Rectal Exam: deferred Back Exam: normal inspection, normal range of motion, No CVA tenderness, No vertebral tenderness Extremity Exam: normal inspection, normal range of motion Skin Exam: normal color, warm, dry Final Diagnosis/Problem List - Final Discharge Diagnosis/Problem (1) Paracentral disc prolapse Status: Acute Assessment & Plan: follow up with Dr Galindo tomorrow Chief Complaint Diagnosis severe back pain for 1 day Allergies Allergy/AdvReac Type Severity Reaction Status Date / Time No Known Drug Allergies Allergy Verified 10/21/18 19:06 Home Medications Medication Instructions Recorded Confirmed Last Taken Type Ibuprofen 200 mg [Motrin 200 200 mg PO Q6H PRN PRN 10/22/18 10/22/18 Unknown History mg] Naproxen 500 mg [Naprosyn 500 500 mg PO BIDPRN PRN #10 tablet 10/26/18 Unknown Rx MG] Current Medications Discontinued Medications Generic Name Dose Route Start Last Admin Trade Name Freq PRN Reason Stop Dose Admin Dexamethasone Sodium Phosphate 10 mg 10/21/18 19:16 10/21/18 19:36 Decadron 10mg Inj. IM 10/21/18 19:17 10 mg STAT ONE Administration Dexamethasone Sodium Phosphate Confirm 10/21/18 19:21 Decadron 10mg Inj. Administered 10/21/18 19:22 Dose 10 mg .ROUTE .STK-MED ONE Hydromorphone HCl 2 mg 10/21/18 19:15 10/21/18 19:33 Dilaudid 2 Mg Injection IM 10/21/18 19:16 2 mg ONCE ONE Administration Hydromorphone HCl Confirm 10/21/18 19:21 Hydromorphone 1 Mg/Ml Ampule Administered 10/21/18 19:22 Dose 2 mg .ROUTE .STK-MED ONE Sodium Chloride Confirm 10/21/18 23:36 Sodium Chloride 0.9% 1000 Ml Administered 10/21/18 23:37 Dose 1,000 mls @ ud .ROUTE .STK-MED ONE Sodium Chloride 1,000 mls @ 999 mls/hr 10/21/18 23:48 10/22/18 00:30 Sodium Chloride 0.9% 1000 Ml IV 10/22/18 00:48 999 mls/hr .Q1H1M STA Administration Ibuprofen 200 mg 10/22/18 08:58 Motrin 200 Mg PO 11/21/18 08:57 Q6H PRN PRN PAIN Ketorolac Tromethamine 60 mg 10/22/18 11:45 10/22/18 11:57 Toradol 30 Mg Injection IM 10/27/18 11:44 60 mg Q8H JULIA Administration Ketorolac Tromethamine 30 mg 10/22/18 19:45 10/26/18 03:15 Toradol 30 Mg Injection IV 10/27/18 19:44 Not Given Q8H JULIA Morphine Sulfate 4 mg 10/21/18 20:46 10/21/18 21:13 Morphine Sulfate 4 Mg Inj IM 10/21/18 20:47 4 mg STAT ONE Administration Morphine Sulfate Confirm 10/21/18 21:12 Morphine Sulfate 4 Mg Inj Administered 10/21/18 21:13 Dose 4 mg .ROUTE .STK-MED ONE Morphine Sulfate 4 mg 10/21/18 23:48 10/22/18 00:30 Morphine Sulfate 2 Mg Inj IV 10/26/18 23:47 4 mg Q2H PRN PRN Administration PAIN Morphine Sulfate 4 mg 10/22/18 07:00 10/26/18 07:11 Morphine Sulfate 4 Mg Inj IV 10/27/18 06:59 4 mg Q2H PRN PRN Administration Morphine Sulfate 1 mg 10/24/18 11:07 10/24/18 11:15 Morphine Sulfate 2 Mg Inj IV 10/24/18 11:08 1 mg STAT ONE Administration Naproxen 500 mg 10/26/18 10:00 10/26/18 09:41 Naprosyn 500 Mg PO 11/25/18 09:59 500 mg BID JUILA Administration Sodium Chloride 10 ml 10/22/18 14:00 10/26/18 05:25 Sodium Chloride 0.9% 10 Ml Flush Syringe IV 11/21/18 13:59 10 ml Q8HT JULIA Administration Sodium Chloride 10 ml 10/22/18 09:00 10/22/18 20:59 Sodium Chloride 0.9% 10 Ml Flush Syringe IV 11/21/18 08:59 10 ml PRN PRN Administration Intake & Output (Last 24 hours) 10/25/18 10/26/18 10/27/18 10/28/18 11:59 11:59 11:59 11:59 Intake Total 1780 2120 240 Output Total 550 Balance 1230 2120 240 Patient Care Notes (Last 24 hours) 10/26/18 15:48 Physical Therapy Note by Pamela Tobin PT. REPORTS R LBP AND R LE PN/PARASTHESIAS AT ~08/26. PLAN IS TO D/C HOME W/ NAPROXEN. PT. REPORTS INCREASED PN W/ WB BUT IS ABLE TO AMBULATE 100' W/ ROLLER WALKER AND SBA. PT. REPORTS HE CAN BORROW A WALKER WHEN HE GETS HOME, BUT ADVISED HIM TO LET US KNOW I WOULD PROVIDE P.T. DOCUMENTATION TO ASSIST W/ INSURANCE COVERAGE. PT. PERFORMED PRONE LYING AND PRONE PROP FOR ~ 3 MINS W/ NO INCREASE IN PN. PT. REPORTED INCREASED R LE PN W/ ATTTEMPT TO SHIFT PELVIS TO LEFT IN PRONE. PT. NOT ABLE TO TOLERATE HAMSTRING/SCIATIC STRETCH IN [place]. PT. REPORTED SOME DECREASED PN W/ R LEG DISTRACTION IN [place]. CP APPLIED TO DECREASE PN/INFLAMMATION. PT. TO SEE DR. GALINDO TOMORROW 10/27 FOR NEUROSURG. CONSULT. NO OP P.T. ORDERED AT THIS TIME. PAMELA TOBIN PT Initialized on 10/26/18 15:48 - END OF NOTE 10/26/18 13:52 Nursing Note by Vandana Duval patient taken home by his father, given discharge instructions on how to manage pain at home Initialized on 10/26/18 13:52 - END OF NOTE Code(s): M51.9 - UNSP THORACIC, THORACOLUM AND LUMBOSACR INTVRT DISC DISORDER (2) Acute low back pain Status: Acute Priority: High Code(s): M54.5 - LOW BACK PAIN (3) Intractable back pain Status: Acute Code(s): M54.9 - DORSALGIA, UNSPECIFIED - Discharge Discharge Date: 10/26/18 Disposition: Home, Self-Care Condition: Good Prescriptions: New Naproxen 500 mg [Naprosyn 500 MG] 500 mg PO BIDPRN PRN #10 tablet PRN Reason: Pain No Action Ibuprofen 200 mg [Motrin 200 mg] 200 mg PO Q6H PRN PRN PRN Reason: Pain Instructions: Low Back Pain in Adults Follow up with: ALLAN HARLEY MD [Primary Care Provider] - 1 Week VICTOR HUGO GALINDO [NON-STAFF PHY W/O PRIVILEGES] - 10/27/18 2:00 pm Forms: Discharge Instructions, Work/School Release Form
== END 2018-10-26 13:45 | disposition home or self-care (01) ==
LOC: ED 18:34 → MED SURG 23:22
PROVIDERS: ADMIT General Practice; ATTEND General Practice
DX: M51.16 Intervertebral disc disorders with radiculopathy, lumbar region (principal); M54.5 Low back pain; M54.9 Dorsalgia, unspecified
CPT/HCPCS: 36415; 72148; 80048; 82550; 85025; 93268; 96372; 97014; 97110; 97140; 97161; 97530; 99285; G0378; 99284; J1100; J1170; J1885; J2270; A9270-GY; G0283-GP